=== PATIENT | female | born 1945 | race Caucasian/White ===

== ENCOUNTER → 2023-03-06 | Day surgery (SDC) | payer OTHER ==
[2023-03-04 11:55] LABS: BASOPHILS # (AUTO) 0.1 (0.0-0.1); BASOPHILS % 0.6 % (0.0-1.0); EOSINOPHILS # (AUTO) 0.3 (0.0-0.4); EOSINOPHILS % 2.9 % (0.0-6.0); HEMATOCRIT 29.3 % (34.2-44.1); HEMOGLOBIN 9.4 g/dL (12.0-16.0); LYMPHOCYTES # (AUTO) 1.8 (1.0-3.2); LYMPHOCYTES % 18.9 % (18.0-39.1); MEAN CORPUSCULAR HEMOGLOBIN 29.9 pg (28-32); MEAN CORPUSCULAR HGB CONC 32.1 g/dL (31-35); MEAN CORPUSCULAR VOLUME 93.3 fL (81-99); MONOCYTES # (AUTO) 0.9 (0.2-0.8); MONOCYTES % 9.3 % (4.4-11.3); NEUTROPHILS # (AUTO) 6.5 (2.1-6.9); NEUTROPHILS % 67.9 % (38.7-80.0); PLATELET COUNT 228 x10e3/uL (140-360); RED BLOOD COUNT 3.14 x10e6/uL (3.6-5.1); RED CELL DISTRIBUTION WIDTH 13.8 % (11.7-14.4)
[2023-03-04 12:18] LABS: INR 0.94
[2023-03-04 12:19] LABS: ANION GAP 13.7 mmol/L (8-16); CALCIUM 8.3 mg/dL (8.4-10.2); CREATININE, SERUM 2.08 mg/dL (0.57-1.11); PARTIAL THROMBOPLASTIN TIME 27.5 seconds (23.8-35.5); POTASSIUM 4.7 mmol/L (3.5-5.1)
[~2023-03-06] MED LIST: ALBUTEROL SULF 0.083% NEB SOLN 3 ML NEB ONE; ALBUTEROL SULFATE HFA 8GM INHALATION AEROSOL INH ONE; AMLODIPINE BES2.5 MG PO; ASPIRIN81 MG PO; ATORVASTATIN CA20 MG PO; EPHEDRINE SULFATE INJ 50 MG/ML VIAL ONE; FENTANYL CITRATE/PF 100MCG/2 ML INJ ONE; FEROSUL325 MG PO; FOLIC ACID0.4 MG PO; LACTATED RINGER'S 1,000 ML ONE; LEVOTHYROXINE50 MCG PO; LIDOCAINE HCL 2% LOCAL INJ 5 ML SDV VIAL INJ ONE; METOCLOPRAMIDE10 MG PO; MIDAZOLAM HCL 2 MG/2 ML VIAL ONE; NEURONTIN300 MG PO; OMEPRAZOLE20 MG PO; ONDANSETRON HCL INJ 2MG/ML 2ML 2 MG/ML VIAL ONE; OR PHACO EYE KIT ONE; OS-CAL 500+D T1 EACH PO; POVIDONE IODINE 0.05% 0.05 % ML PO ONE; PREOP PHACO EYE KIT ONE; PROPOFOL IV EMULSION 10 MG/ML 20 ML VIAL ONE; PROVENTIL HFA6.7 GM INH; SEVOFLURANE INHAL SOLN 250 ML PEN BTL ONE; ULTRAM 50MG50 MG PO; VITAMIN B-121000 MCG PO
[2023-03-06 10:13] VITALS: TEMP 97.2
[2023-03-06 10:30] VITALS: BP 126/53; PULSE 89; RESP 18; O2SAT 98
== END | disposition home or self-care (01) ==
LOC: OR 06:20
PROVIDERS: ATTEND Ophthalmology
DX: H25.12 Age-related nuclear cataract, left eye (principal); D64.9 Anemia, unspecified; J45.909 Unspecified asthma, uncomplicated; E03.9 Hypothyroidism, unspecified; E11.22 Type 2 diabetes mellitus with diabetic chronic kidney disease; I12.9 Hypertensive chronic kidney disease with stage 1 through stage 4 chronic kidney disease, or unspecified chronic kidney disease; N18.4 Chronic kidney disease, stage 4 (severe); K21.9 Gastro-esophageal reflux disease without esophagitis; E78.5 Hyperlipidemia, unspecified; F03.90 Unspecified dementia, unspecified severity, without behavioral disturbance, psychotic disturbance, mood disturbance, and anxiety; Z88.6 Allergy status to analgesic agent; Z88.0 Allergy status to penicillin; Z01.810 Encounter for preprocedural cardiovascular examination; Z01.812 Encounter for preprocedural laboratory examination; Z79.82 Long term (current) use of aspirin; Z79.899 Other long term (current) drug therapy
CPT/HCPCS: 36415; 66984; 80048; 85025; 85610; 85730; 93005; J2001; J2250; J2405; J2704; J3010; J7121; V2632